=== PATIENT | female | born 1940 | race Caucasian/White ===

== ENCOUNTER 2016-10-29 11:48 | Inpatient (IN) | payer MEDICARE, OTHER ==
[2016-10-26 13:48] LABS: HEMATOCRIT 40.9 % (36.0-48.0); HEMOGLOBIN 13.8 g/dL (12.0-16.0)
[2016-10-26 14:05] LABS: BUN (BLOOD UREA NITROGEN) 17 MG/DL (6-23); CALCIUM, SERUM 8.9 MG/DL (8.5-10.4); CHLORIDE, SERUM 104 MMOL/L (96-112); CO2 (CARBON DIOXIDE) 25 MMOL/L (24-34); CREATININE 0.94 MG/DL (0.55-1.02); GFR AFRICAN AMERICAN 69 ML/MIN (>=60); GFR NON AFRICAN AMERICAN 59 ML/MIN (>=60); GLUCOSE, SERUM 102 MG/DL (60-99); POTASSIUM, SERUM 3.9 MMOL/L (3.5-5.3); SODIUM, SERUM 140 MMOL/L (135-148)
--- NOTE | ~2016-10-29 | OP ---
Record Of Operation [facility] [address] [place]. [address] NAME: GOLDEN PALOMARES : 42 STATUS : ADM IN PAT#: [id number] AGE: 76 ADM/REG DATE : 10/29/16 MR#: [id number] REPORT SERV DATE: 10/29/16 DICTATED BY: KEVEN IQBAL DATE: 10/29/16 REPORT STATUS : Draft TRANSCRIBED BY: MODL DATE: 10/29/16 DATE OF PROCEDURE: 10/29/2016 PREOPERATIVE DIAGNOSIS: C3-C7 disk disease and stenosis with intractable pain. POSTOPERATIVE DIAGNOSIS: C3-C7 disk disease and stenosis with intractable pain. PROCEDURE: Anterior cervical diskectomy and fusion, C3-4, C4-5, C5-6, C6-7; placement of Medtronic interbody spacer, C3-4, C4-5, C5-6, C6-7; anterior cervical plate from Medtronic, C3 through C7; allograft bone matrix neuromonitoring; and operative microscope. SURGEON: Keven Iqbal DO ANESTHESIA: General. ESTIMATED BLOOD LOSS: 60 mL. COMPLICATIONS: None. INDICATIONS: The patient is a 76-year-old with intractable neck and arm pain, failed conservative treatment. After discussion of risks and benefits, elected to proceed with surgery. PROCEDURE: I identified the patient in the holding area. Consent was obtained and went to the operating room. Underwent general anesthesia with endotracheal intubation. Prepped and draped in the usual sterile fashion. Operative safety pause was performed and then we proceeded. An oblique incision was made over the left side of the neck, taken down through the platysma. The longus coli elevated. Self-retaining retractors placed. Freedom pin was placed on the vertebral body and verified operative level with lateral fluoroscopic image. Distraction applied, C3-C4. Operative microscope was brought in. Knife was used to perform an annulotomy. Free disk material removed with pituitary. Anterior osteophytes were removed with the Kerrison. Posterior osteophytes removed with a estela bur. Foraminotomies were performed with Kerrison. Endplates were prepared with curettes, rasp, and a cutting bur. Trial spacers were implanted, then Medtronic PEEK interbody spacer with allograft bone matrix placed at C3-C4. This was repeated at C4-5, C5-6, and C6-7. Freedom pins were removed. Anterior cervical plate from Medtronic was placed C3 through C7. Screws were placed, final tightened. Locking mechanisms were engaged. Irrigation performed. Hemostasis achieved. Final AP and lateral images obtained. Subplatysmal drain was placed. Layered closure was performed. Sterile dressings were applied. The patient was awoken extubated and taken to the recovery room in stable condition. OPERATIVE FINDINGS: C3-7 disk disease and stenosis. No sustained neuromonitoring alerts. JCE/MODL Record Of Operation [address] [place]. [address] NAME: GOLDEN PALOMARES : 42 STATUS : ADM IN PAT#: [id number] AGE: 76 ADM/REG DATE : 10/29/16 MR#: [id number] REPORT SERV DATE: 10/29/16 DICTATED BY: KEVEN IQBAL DATE: 10/29/16 REPORT STATUS : Draft TRANSCRIBED BY: MODCboy DATE: 10/29/16 Keven Iqbal DO / [id number] CC: DO Letty Cruz
--- NOTE | ~2016-10-29 | CN ---
Consultation Report [facility] [address] [place]. [address] NAME: GOLDEN PALOMARES : 42 STATUS : ADM IN PAT#: [id number] AGE: 76 ADM/REG DATE : 10/29/16 MR#: [id number] REPORT SERV DATE: 10/31/16 DICTATED BY: LESLI GONZALEZ DATE: 10/31/16 REPORT STATUS : Draft TRANSCRIBED BY: MODL DATE: 10/31/16 MEDICAL CONSULTATION DATE OF CONSULTATION: 10/31/2016 IDENTIFYING DATA: A 76-year-old white female, whose PCP is Letty Cook and surgeon, Dr. Keven Iqbal. REASON FOR CONSULTATION: Low oxygen saturation. HISTORY OF PRESENT ILLNESS: This history of present illness is obtained by talking with the patient and three family members at the bedside, as well as talking to her nurse and reviewing [employer] and the current paper chart. The patient has had significant neck pain, which led to an elective surgical procedure with Dr. Keven Iqbal on 10/29/2016 with an anterior cervical diskectomy and fusion. Postop, she was initially in the intensive care and seen by Dr. Hoang Freeman of Pulmonary. Intraoperatively, it appears that the patient received Decadron 8 mg. According to family, over the last day, she has had more difficulty with swallowing, she gets choked and coughs. She is not taking in much orally. She has had decreased oral output. The nurse noted this morning that to get her O2 sat up to 90% or 91%, they had to transformation coach her to use the incentive spirometry and the patient was not very good at using that, so we were consulted since Pulmonary and Critical Care is no longer following her after she is out of the intensive care. According to and the patient, she did not have cough or congestion at home prior to this procedure. She has had a very sore throat postop. REVIEW OF SYSTEMS: She has had chronic soreness in her low anterior ribs for years. She has had some mild chronic shortness of breath, it is a little worse now. She has been very sleepy and according to her, just weak in general today. She has denied fever, nausea, vomiting, diarrhea, rectal bleeding, melena, dysuria, peripheral edema, tick bites, weight change, or falls. ALLERGIES: SHE CLAIMS ALLERGY TO PENICILLIN. PAST MEDICAL HISTORY: She denies any history of diabetes, asthma, COPD, heart disease, stroke, seizure, biliary tract disease, liver disease, thyroid disease, cancer, or sleep apnea. She has a history of hypertension, hyperlipidemia, ulcers, reflux, kidney infection years ago, and the states that recently she had some swelling behind the right eye and she was given some steroid drops for this. HOME MEDICATIONS: Fosamax 70 mg every Wednesday, aspirin 81 mg daily, Lipitor 40 mg daily, Consultation Report [address] [address] NAME: GOLDEN PALOMARES : 42 STATUS : ADM IN [facility]#: [id number] AGE: 76 ADM/REG DATE : 10/29/16 MR#: [id number] REPORT SERV DATE: 10/31/16 DICTATED BY: LESLI GONZALEZ DATE: 10/31/16 REPORT STATUS : Draft TRANSCRIBED BY: OMID DATE: 10/31/16 Zyrtec 10 mg daily, Flexeril 10 mg daily, Estrace 1 mg twice a day, hydrochlorothiazide 12.5 mg p.o. daily, meloxicam 15 mg daily, omeprazole 20 mg b.i.d., verapamil SR 240 mg daily. PAST SURGICAL HISTORY: She has had cervical spine surgeries, hysterectomy, rectocele repair, breast implantation. SOCIAL HISTORY: She used to smoke, but quit in the 1980s, but has a [id number] history. No significant alcohol intake history. She is . 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 She walks without assistive device. FAMILY HISTORY: Mother had breast cancer. Dad with heart disease. Siblings with bone cancer, prostate cancer, and one what sounds like he had a lymphoma. DIAGNOSTIC DATA: Chest x-ray done as a single portable film on 10/30/2016 reveals some pulmonary vascular congestion, some atelectasis in the lung base, and the hardware changes in her neck. On 10/30/2016, sodium 138, potassium 3.5, chloride 102, CO2 is 23, BUN 12, creatinine 0.86, glucose 177, calcium 7.1, magnesium 1.7, phosphorus 2.3, albumin was 2.5, alkaline phosphatase is 190. On 10/30/2016, white count was 14.2 with hemoglobin 12.6 and platelets 266,000. 10/26/2016, nasal swab was negative for MRSA and negative for Staph aureus. EKG on 10/26/2016 at 1325 hours reveals normal sinus rhythm and a normal EKG per my interpretation. PHYSICAL EXAMINATION: VITAL SIGNS: Temp is 98, pulse 78, respirations 18, blood pressure 110/58, O2 sat 91% on room air. BMI 29.3. GENERAL: A well-developed older female, who appears drowsy, but in no acute distress. She is coughing and it sounds wet, and she has difficult time clearing it. HEENT: Pupils equal, round, and reactive to light. Extraocular motions are intact. No scleral icterus noted. Ears, externally unremarkable. No inflammatory changes noted and normal hearing bilaterally. Nose, noninflamed externally. Septum midline. Nares patent. Mouth is dry. She has a weak gag. No redness on her throat at this time. NECK: She has incision on the left side that was clean, dry, and intact. No lymphadenopathy. Carotids have good pulses. LUNGS: Shallow inspiratory sighs. She has upper airway rhonchi. Normal respiratory comfort at this time. HEART: Regular rate and rhythm without murmur, gallop, click, or rub. ABDOMEN: Bowel sounds positive. Soft and nondistended. Minimally tender in the left lower quadrant with palpation only. No mass. No organomegaly. No bruits. EXTREMITIES: Warm. Good pulses. No clubbing. No cyanosis. No edema. No actively inflamed skin or joints. NEUROLOGIC: She is a bit drowsy, but easy to awaken with tactile and verbal stimulation. She is oriented. Her speech is clear. Her motor strength is 2/5 in all four extremities. No Babinski. No clonus noted. Cranial nerves 2 through 12 grossly normal. ASSESSMENT: Consultation Report [address] [place]. [address] NAME: GOLDEN PALOMARES : 42 STATUS : ADM IN [facility]#: [id number] AGE: 76 ADM/REG DATE : 10/29/16 MR#: [id number] REPORT SERV DATE: 10/31/16 DICTATED BY: LESLI GONZALEZ DATE: 10/31/16 REPORT STATUS : Draft TRANSCRIBED BY: MODL DATE: 10/31/16 1. New postoperative wet cough with some hypoxia and increased cough with oral intake. This is concerning for aspiration after a neck surgery. 2. Mild acute hypoxic respiratory insufficiency related to problem #1. 3. Ex-cigarette smoker. 4. Drowsiness, it is probably metabolic encephalopathy related to pain medications and less likely obstructive sleep apnea. It is unlikely that she has chronic hypercapnic failure as her outpatient chemistry showed a bicarbonate of 25 and her bicarbonate level yesterday was 23. 5. Steroid-induced hyperglycemia. 6. History of hypertension. 7. History of hyperlipidemia. 8. History of ulcers and reflux. 9. History of kidney infection long time ago. 10.History of some "swelling behind the right eye recently.". PLAN: 1. Follow up chest x-ray. 2. Thickened liquids. 3. Aspiration precautions that she should be sitting upright and alert before she tries to take anything by mouth. 4. We will give her some supplemental IV fluids because she has not been putting out much fluid and not taking in much fluids. 5. Hold her estrogen while she is sedentary. 6. Discontinue Phenergan. 7. Reduce the strength of her opiates. 8. Follow up chemistries and CBC and check a procalcitonin today. RSG/MODL Lesli Gonzalez M.D. / [id number] CC: Keven Iqbal, DO Cook,Letty Jaffe
--- NOTE | ~2016-10-29 | PREOPHP ---
PreOp History and Physical [address] [address] NAME: GOLDEN PALOMARES : 42 STATUS : REG [facility]#: [id number] AGE: 76 ADM/REG DATE : 10/29/16 MR#: [id number] REPORT SERV DATE: 10/29/16 DICTATED BY: KEVEN ALEXANDER DATE: 10/29/16 REPORT STATUS : Draft TRANSCRIBED BY: OMID DATE: 10/29/16 CHIEF COMPLAINT: Neck pain. HISTORY OF PRESENT ILLNESS: The patient is a 76-year-old with intractable neck pain with failed conservative treatment. After discussion of risks and benefits, elected to proceed with surgery. REVIEW OF SYSTEMS: She denies chest pain, shortness of breath, and bowel or bladder changes. ALLERGIES: PENICILLIN. HOME MEDICATIONS: Aspirin, atorvastatin, cyclobenzaprine, estradiol, hydrochlorothiazide, meloxicam, omeprazole, tramadol, verapamil, Zyrtec. FAMILY HISTORY: Noncontributory. PAST MEDICAL HISTORY: Hypertension, high cholesterol, gastric reflux, osteoporosis, osteoarthritis. PHYSICAL EXAMINATION: VITAL SIGNS: Height 5 feet 4 inches, weight 170, BMI 29.2. GENERAL: The patient is healthy appearing, in no acute distress. PSYCH: Alert and oriented x3. Normal mood and affect. Gait is within normal limits. VASCULAR: No extremity swelling. SPINE: Decreased cervical range of motion. HEART: Regular rate and rhythm. LUNGS: Clear to auscultation. ABDOMEN: Soft, nontender, nondistended with good bowel sounds. BREASTS AND RECTAL: Both deferred. NEUROLOGIC: Strength in the upper extremities remains neurologically intact. No focal deficits. IMAGING: I have reviewed the MRI scan of the cervical spine. She has C3 through C7 disk disease and stenosis. ASSESSMENT: Cervical disk disease and stenosis. Intractable pain. Failed conservative treatment. After discussion of risks and benefits, the patient elected to proceed with surgery. KELLE/OMID Keven Alexander DO PreOp History and Physical [address] [address] NAME: GOLDEN PALOMARES : 42 STATUS : REG SD PAT#: [id number] AGE: 76 ADM/REG DATE : 10/29/16 MR#: [id number] REPORT SERV DATE: 10/29/16 DICTATED BY: KEVEN ALEXANDER DATE: 10/29/16 REPORT STATUS : Draft TRANSCRIBED BY: MODL DATE: 10/29/16 / [id number] CC: Keven Alexander, DO Letty Cook
--- NOTE | ~2016-10-29 | CN ---
Consultation Report [facility] [address] [place]. [address] NAME: GOLDEN PETER : 42 STATUS : ADM IN PAT#: [id number] AGE: 76 ADM/REG DATE : 10/29/16 MR#: [id number] REPORT SERV DATE: 10/30/16 DICTATED BY: DEANGELO FREEMAN IV DATE: 10/29/16 REPORT STATUS : Draft TRANSCRIBED BY: OMID DATE: 10/29/16 CRITICAL CARE CONSULT DATE OF CONSULTATION: 10/29/2016 REASON FOR REQUEST: Postoperative management of hypertension. HISTORY OF PRESENT ILLNESS: History was obtained from the records and from the patient. Ms Peter is a 76-year-old female with a history of hypertension, elevated cholesterol, reflux disease, who is now status post C3-7 diskectomy with fusion and anterior cervical cage and segmental instrumentation. The patient has had problems with progressive neck pain. The patient decided to proceed with surgery with the procedure as noted above. Postoperatively, the patient has adequate pain control and in no distress. She denied chronic cough, sputum production, fevers, chills, sweats, hemoptysis prior to presentation. She does have bilateral upper abdominal discomfort that is positional that has been occurring intermittently for well over a month. She denies retrosternal or pleuritic chest pain. The discomfort is worse with certain movements and is under both lower ribs. She denies change in bowel habits, melena, hematochezia, nausea or vomiting. The patient reportedly will snore. She is unaware of apneic episodes. She feels that sleep is generally restorative and denies significant sedentary hypersomnolence. PULMONARY HISTORY: Remarkable for no history of childhood asthma, known adult obstructive lung disease or previous pneumonia. She has a 35 pack-year smoking history, having quit at the age of 51. She worked in [employer] with significant dust and lint exposure. She is up to date on the flu shot and seasonal influenza vaccine, however, has not received the pneumococcal vaccinations. PAST MEDICAL HISTORY: Remarkable for: 1. Hypertension. 2. Elevated cholesterol. 3. Reflux disease. 4. Cervical spinal stenosis. SURGERIES: The patient has had: 1. Hysterectomy. 2. Rectocele repair. 3. Breast augmentation. 4. Current surgical procedure as noted. ALLERGIES: PENICILLIN, WHICH CAUSES A RASH. CURRENT MEDICATIONS: The patient is on Calan SR 240 mg daily, Claritin 10 mg daily, Colace 100 mg twice a day, Estrace 1 mg twice a day, Flexeril 10 mg daily, hydrochlorothiazide 12.5 Consultation Report [facility] [address] [place]. [address] NAME: GOLDEN PETER : 42 STATUS : ADM IN PAT#: [id number] AGE: 76 ADM/REG DATE : 10/29/16 MR#: [id number] REPORT SERV DATE: 10/30/16 DICTATED BY: DEANGELO FREEMAN IV DATE: 10/29/16 REPORT STATUS : Draft TRANSCRIBED BY: MODL DATE: 10/29/16 mg daily, Lipitor 40 mg daily, Protonix 40 mg twice a day. SOCIAL HISTORY: Remarkable for the previous tobacco use as above. She has rare social alcohol use. There is no illicit drug use. She is and has three children. FAMILY HISTORY: Remarkable for mother with brain cancer, father with stroke and hypertension. REVIEW OF SYSTEMS: 14-systems reviewed and pertinent positives are as noted above. PHYSICAL EXAMINATION: GENERAL: This is an obese, pleasant, elderly female, in no distress. VITAL SIGNS: Temperature is 98.2, blood pressure 144/75, pulse is 78, respiratory rate is 16 with 92% saturation on 2 L. HEENT: Normocephalic, atraumatic. Extraocular movements are intact. Pupils react to light. Sclerae and conjunctivae normal. She has a nasal cannula in place. She has a Mallampati 3 to 4 airway with narrowing of the posterior pharyngeal space. She has upper and lower dentures. NECK: Cannot be examined because of the soft cervical spine. She has a drain emanating from her left cervical region. CHEST: Lungs are clear to auscultation and percussion with no wheezes, rhonchi, or crackles noted. CARDIOVASCULAR: Jugular venous pulsations and carotids could not be examined. She has a regular S1, S2 with no clear murmur, S3, S4. Peripheral pulses are diminished. ABDOMEN: Soft and nontender. There are hypoactive bowel sounds. There is no palpable hepatosplenomegaly or mass. Surgical scars noted. EXTREMITIES: Demonstrate no cyanosis, clubbing, edema, or palpable cords. Pneumatic compression stockings are in place. NEUROLOGIC: Strength is 5/5 and sensation is intact to light touch. LABORATORY DATA: Outpatient labs included chemistry; sodium 140, potassium 3.9, chloride 104, bicarbonate 15, BUN 17, creatinine 0.94, glucose of 102. Calcium is 8.9. Hemoglobin and hematocrit were 13.8 and 40.9. ASSESSMENT AND PLAN: 1. Respiratory. The patient has significant smoking history. She will have albuterol as needed for wheezing or shortness of breath. Oxygen will be titrated to maintain saturation in the 90% to 94% range. X-ray will be obtained tomorrow. Incentive spirometry 10 breaths every hour awake. The patient has some symptoms consistent with obstructive sleep apnea and may warrant an outpatient sleep evaluation. 2. Cardiovascular. We will add hydralazine 10 to 20 mg q.6 hours as needed for elevated blood pressures. EKG will be obtained in the morning. 3. Renal. We will check labs in the morning with electrolyte replacement protocol. 4. Gastrointestinal. Liver panel will be obtained in the morning. Head of bed at 30 to Consultation Report [address] [place]. [address] NAME: GOLDEN PETER : 42 STATUS : ADM IN [facility]#: [id number] AGE: 76 ADM/REG DATE : 10/29/16 MR#: [id number] REPORT SERV DATE: 10/30/16 DICTATED BY: DEANGELO FREEMAN IV DATE: 10/29/16 REPORT STATUS : Draft TRANSCRIBED BY: OMID DATE: 10/29/16 45 degrees. We will continue the b.i.d. Protonix. 5. Infectious disease. Prevnar 13 at the time of discharge. 6. Hematologic. Pneumatic compression stockings. CBC in the morning. Thank you for consulting us. We will follow the patient with you. JOSTIN/OMID Deangelo Freeman IV, M.D. / [id number] CC: Keven Iqbal, HERMELINDA BOGGS
--- NOTE | ~2016-10-29 | DS ---
Discharge Summary [facility] [address] [place]. [address] NAME: GOLDEN PALOMARES : 42 STATUS : DIS IN PAT#: [id number] AGE: 76 ADM/REG DATE : 10/29/16 MR#: [id number] REPORT SERV DATE: 11/26/16 DICTATED BY: KEVEN IQBAL DATE: 11/25/16 REPORT STATUS : Draft TRANSCRIBED BY: OMID DATE: 11/25/16 Data Collection from hospitalization DISCHARGE DIAGNOSES: 1. 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 2. Hypertension. 3. Hypercholesterolemia. 4. Gastric reflux. 5. Osteoporosis. 6. Osteoarthritis. CONSULTATIONS: 1. Hoang Freeman M.D. 2. Reji Gonzalez M.D. 3. Deng Parekh M.D. PROCEDURES: 1. Anterior cervical diskectomy and fusion C3-C4, C4-C5, C5-C6, C6-C7; placement of Medtronic interbody spacer C3-C4, C4-C5, C5-C6, C6-C7; anterior cervical plate from Medtronic, C3 through C7; allograft bone matrix; neuromonitoring; and operative microscope, 10/29/2016. 2. Upper GI endoscopy, 11/09/2016. 3. Modified barium swallow study, 11/04/2016. 4. Modified barium swallow study, 11/06/2016. PATHOLOGY: Bone and soft tissue, cervical spine excision - cartilage and bone, calcium pyrophosphate crystal deposition. DISCHARGE MEDICATIONS: Colace 100 mg twice a day, Reglan 10 mg IV every 8 hours, milk of magnesia 30 mL every eight hours as needed, Lopressor 25 mg twice a day, Protonix 40 mg IV daily, MiraLAX one packet daily, DuoNeb 3 mL via inhaler every four hours while awake as needed, Lortab liquid every four hours as needed, aspirin 81 mg daily, and Lipitor 40 mg at bedtime. CONDITION AT DISCHARGE: Stable. DISPOSITION: The patient was discharged to [facility] on tube feedings with activities as instructed. HOSPITAL COURSE: This is a 76-year-old female who had intractable neck pain with failed conservative treatment. She has C3-C7 disk disease and stenosis with intractable pain. Treatment options were discussed and it was elected to proceed with surgical intervention. She was admitted to the hospital at this time for further evaluation and treatment. Upon admission, she was taken to the operating room where she underwent the above-mentioned procedure. She tolerated this well and there were no complications. Postoperatively, she was seen by Dr. Hoang Freeman regarding postoperative management of hypertension. She has had bilateral upper abdominal discomfort that was positional that had been occurring Discharge Summary [address] [place]. [address] NAME: GOLDEN PALOMARES : 41 STATUS : DIS IN PAT#: [id number] AGE: 76 ADM/REG DATE : 10/29/16 MR#: [id number] REPORT SERV DATE: 11/26/16 DICTATED BY: KEVEN IQBAL DATE: 11/25/16 REPORT STATUS : Draft TRANSCRIBED BY: OMID DATE: 11/25/16 intermittently for well over a month. She denied any retrosternal or pleuritic chest pain. The discomfort was worse with certain movements and was under both lower ribs. She reportedly does snore. She is unaware of apneic episodes. She does have a significant smoking history. She would receive albuterol as needed for wheezing or shortness of breath. Oxygen would be titrated to maintain saturations in the 90%-94% range. She was to use incentive spirometry every hour while awake. The patient has some symptoms consistent with obstructive sleep apnea, which may warrant an outpatient sleep evaluation. IV hydralazine was going to be added. EKG was going to be obtained, a liver panel would be obtained the following morning. Head of her bed would be the elevated at 30 to 45 degrees. Protonix was continued. Prevnar 13 would be given at the time of discharge. Pneumatic compression stockings were placed. Following day, chest x-ray showed slight atelectasis. Electrolyte replacement protocol was in place. On 10/31/2016, the patient was seen by Dr. Reji Gonzalez regarding low oxygen saturation. According to her family, over the past day, she has had more difficulty swallowing. She gets choked and cough. She was not taking in much orally, she had decreased oral output. She was not very good at using her incentive spirometer. She complained of having a very sore throat. She had a new postoperative wet cough with some hypoxia and increased cough with oral intake, this was concerning for aspiration after neck surgery. She does have mild acute hypoxic respiratory insufficiency. She is an ex-cigarette smoker. Followup chest x-ray would be performed, thickened liquids would be provided. Aspiration precautions were in place. She was going to be given some supplemental IV fluids. Estrogen would be held while she was sedentary. Phenergan was discontinued. We would reduce the strength of her opiates. On 11/01/2016, she had been hypoxic during the night. Chest x-ray showed bibasilar infiltrate/atelectasis, left greater than right. There were probable bibasilar pleural fluids. Potassium supplementation was given. IV clindamycin was started for aspiration pneumonia. Oral medications were stopped, next day she slept well. Her voice was hoarse. Her sore throat was mild. The left neck was mildly tender. Guzmán catheter was removed, evaluated by Physical Therapy. A swallow study was ordered. She was reevaluated by Physical Therapy. Speech-language Pathology performed a bedside swallow study. Aspiration precautions were in place. On the , her pain was controlled, she was still hoarse. She was on Vapotherm, O2 was being weaned. On 11/04/2016, a modified barium swallow study was performed. Aspiration precautions remained in place. She pulled her Dobhoff tube out. She had vzpj-xj-etzokaxq edema of the neck. IV Vasotec was going to be given. She still has some swallowing difficulties, but began to tolerate liquids and Ensure well. She was still on O2, but now only on 5 L. Levaquin was stopped. Clindamycin would be discontinued after 15 doses for aspiration pneumonia. On the , Dobhoff tube was placed. Modified barium swallow study was performed. Swallow function was worse than the previous study. Aspiration precautions remained in place. The pain in her neck had worsened. She had developed more swelling. She remained strictly n.p.o. at this time. Tube feedings were going to be provided, we were going to rest the esophagus. Ice packs were going to be used. Vasotec was changed to a beta-subhash. A dose of Toradol was given. Colace, MiraLAX, and Dulcolax suppository was given for constipation. IV Protonix was being given as well. On the , she was seen by Dr. Deng Parekh. The patient had undergone cervical surgery and had problems with dysphagia and aspiration on swallowing study. She denies any history of swallow difficulty prior to surgery. She had had no gastric surgery in the past, it was felt that she would need to undergo upper GI endoscopy with PEG tube placement. Discharge Summary [place] [id number] [place] [address] NAME: GOLDEN PALOMARES : 42 STATUS : DIS IN PAT#: [id number] AGE: 76 ADM/REG DATE : 10/29/16 MR#: [id number] REPORT SERV DATE: 11/26/16 DICTATED BY: KEVEN IQBAL DATE: 11/25/16 REPORT STATUS : Draft TRANSCRIBED BY: OMID DATE: 11/25/16 On 11/09/2016, she was taken to the endoscopic suite where she underwent the above-mentioned procedure of upper GI endoscopy and PEG tube placement by Dr. Saji Smith. She tolerated this well. There were no complications. On 11/10/2016, she still felt weak and hoarse. She had neck pain. Her abdomen was sore. Her paroxysmal atrial tachycardia spontaneously resolved, it was nonrecurrent. She was on low-dose Lopressor. She was not requiring blood pressure medication here, tube feedings were going to began. There was no erythema bleeding or drainage around the PEG tube site. The next day, the patient had some projectile vomiting with tube feedings. They were held and then restarted overnight without recurrent vomiting. There were no elevated residuals. She did cough up some phlegm, her pain was controlled. Her neck was soft. Discharge planning was performed on 11/12/2016. She had no vomiting overnight on tube feedings. Attempts to advance had been limited by vomiting. She said she had no nausea or pain at this time. She did have a bowel movement. White count was 11.5. Her voice was hoarse and she was only able to whisper. She is now on Reglan. Aspiration pneumonia had resolved. Low-dose Lopressor continued. Discharge instructions were given. Due to her improved and stable condition, she was discharged to [facility] with the above-stated instructions. Information collected by: Beth Solares I submit the above information as my discharge summary. REJI/OMID Keven Iqbal DO / [id number] CC: DO HENNY Cruz KARAH FREEMAN [facility] Deng Parekh M.D.
--- NOTE | ~2016-10-29 | CN ---
Consultation Report [facility] [place]. [address] NAME: GOLDEN PALMOARES : 42 STATUS : ADM IN PAT#: [id number] AGE: 76 ADM/REG DATE : 10/29/16 MR#: [id number] REPORT SERV DATE: 11/07/16 DICTATED BY: DENG PECK. DATE: 11/07/16 REPORT STATUS : Draft TRANSCRIBED BY: MODL DATE: 11/07/16 GI CONSULT DATE OF CONSULTATION: 11/07/2016 HISTORY OF PRESENT ILLNESS: The patient is a 76-year-old white female, whom I am consulted for gastrostomy tube placement. The patient underwent a cervical surgery and has had problems with dysphagia and aspiration on swallowing study since. She denies any history of swallowing difficulty prior to surgery. She does have a history of gastritis. The patient has had no gastric surgery in the past. PAST MEDICAL HISTORY: 1. Hypertension. 2. Gastroesophageal reflux disease. 3. Osteoporosis and osteoarthritis. MEDICATIONS: Reviewed. ALLERGIES: PENICILLIN. SOCIAL HISTORY: Not obtained. FAMILY HISTORY: Not obtained. PHYSICAL EXAMINATION: GENERAL: The patient is a white female, in no acute distress. LUNGS: Clear. CARDIOVASCULAR: Regular rate and rhythm. ABDOMEN: Obese and soft. No masses. No tenderness to palpation. LABORATORY DATA: Patient's CBC shows white count 12,100, hemoglobin 11.8, hematocrit 34.9, and platelet count 290,000. BUN and creatinine are normal. ASSESSMENT: The patient has difficulty swallowing status post cervical surgery with aspiration, agree with gastrostomy tube feedings, although certainly this does not prevent aspiration of her oral secretions. I have discussed the procedures, risks, and alternatives with the and patient, and they are agreeable to proceed. RECOMMENDATION: Orders were written. We will plan for a PEG placement on 11/09/2016. LS/MODL Consultation Report [place] [id number] [facility] [place]. [address] NAME: GOLDEN PALOMARES : 41 STATUS : ADM IN [facility]#: [id number] AGE: 76 ADM/REG DATE : 10/29/16 MR#: [id number] REPORT SERV DATE: 11/07/16 DICTATED BY: DENG PECK DATE: 11/07/16 REPORT STATUS : Draft TRANSCRIBED BY: MODL DATE: 11/07/16 Deng Peck M.D. / [id number] CC: Keven Iqbal, HERMELINDA BOGGS
--- NOTE | ~2016-10-29 | EGD ---
EGD REPORT [facility] [address] [address] NAME: SYLVIA PETER : 42 STATUS : ADM IN PAT#: [id number] AGE: 76 ADM/REG DATE : 10/29/16 MR#: [id number] REPORT SERV DATE: 11/09/16 DICTATED BY: SAJI QUINTANILLA DATE: 11/09/16 REPORT STATUS : Draft [facility]ANSCRIBED BY: [facility] DATE: 11/09/16 Endoscopy Center Patient Name: Sylvia Peter Date of : 1940 Attending MD: SAJI QUINTANILLA MD Procedure Date No Time: 11/09/2016 Procedure: Upper GI endoscopy Indications: Place PEG because patient is unable to eat, Place PEG due to dysphagia, Place PEG due to impaired swallowing, Place PEG due to aspiration risk Medicines: Monitored Anesthesia Care Complications: No immediate complications. Estimated blood loss: Minimal. Procedure: Pre-Anesthesia Assessment: - ASA Grade Assessment: III - A patient with severe systemic disease. After obtaining informed consent, the endoscope was passed under direct vision. Throughout the procedure, the patient's blood pressure, pulse, and oxygen saturations were monitored continuously. The GIF [id number] was introduced through the mouth, and advanced to the second part of duodenum. The upper GI endoscopy was accomplished without difficulty. The patient tolerated the procedure well. Findings: No gross lesions were noted in the entire esophagus. No gross lesions were noted in the entire examined stomach. The patient was placed in the supine position for PEG placement. The stomach was insufflated to appose gastric and abdominal sher. A site was located in the body of the stomach with excellent transillumination and manual external pressure for placement. The abdominal wall was marked and prepped in a sterile manner. The area was anesthetized with 5 mL of 1% lidocaine. The trocar needle was introduced through the abdominal wall and into the stomach under direct endoscopic view. A snare was introduced through the endoscope and opened in the gastric lumen. The guide wire was passed through the trocar and into the open snare. The snare was closed around the guide wire. The endoscope and snare were removed, pulling the wire out through the mouth. A skin incision was made at the site of needle insertion. The externally removable 20 Fr EndoVive Safety gastrostomy tube was lubricated. The G-tube was passed over the guide wire through the mouth, and into the stomach. The trocar needle was removed, and the gastrostomy tube was pulled out from the stomach through the skin. The guide wire was removed, and the external bumper attached to the gastrostomy tube. The feeding tube was then cut EGD REPORT [place] [id number] [facility] [place]. [address] NAME: JELANISYLVIA JOEL Barney : 42 STATUS : ADM IN [facility]#: [id number] AGE: 76 ADM/REG DATE : 10/29/16 MR#: [id number] REPORT SERV DATE: 11/09/16 DICTATED BY: SAJI QUINTANILLA DATE: 11/09/16 REPORT STATUS : Draft TRANSCRIBED BY: [employer] DATE: 11/09/16 to an appropriate length. The final position of the gastrostomy tube was confirmed by skin marking noted to be 3.5 cm at the external bumper. The final tension and compression of the abdominal wall by the PEG tube and external bumper were checked and revealed that the bumper was loose and lightly touching the skin. The feeding tube was capped, and the tube site was cleaned and dressed. Estimated blood loss was minimal. No gross lesions were noted in the entire examined duodenum. Impression: - Unremarkable EGD - An externally removable PEG placement was successfully completed. Recommendation: - Please follow the post-PEG recommendations including: change dressing once per day, check site for bleeding q 4 hrs, clean site with soap and water daily and dry thoroughly, remove dressing after 2 weeks, NPO x4 hrs then water today, may use PEG today for meds and water and may use PEG tomorrow for feedings. Procedure Code(s): --- Professional --- 35987, Esophagogastroduodenoscopy, flexible, transoral; with directed placement of percutaneous gastrostomy tube Diagnosis Code(s): --- Professional --- R63.3, Feeding difficulties Z43.1, Encounter for attention to gastrostomy R13.10, Dysphagia, unspecified CPT copyright 2013 [employer]. All rights reserved. The codes documented in this report are preliminary and upon corporate manager review may be revised to meet current compliance requirements. Saji Quintanilla MD SAJI QUINTANILLA MD 11/09/2016 8:03 AM This report has been signed electronically. Number of Addenda: 0 Note Initiated On: 11/09/2016 7:13 AM Scope Withdrawal Time 0 hours 0 minutes 0 seconds [address] [place], [place] [id number]
[~2016-10-29 11:48] MED LIST: ASAB PO; ESTRACE1 MG PO; FLEX PO; FOSAMAX70 MG PO; HYDROCHLOROT12.5 MG PO; ISOPTIN SR240 MG PO; LIPITOR40 PO; MOBIC15 MG PO; PRILO PO; ZYRTEC ALLGY10 MG PO
[2016-10-30 05:47] LABS: A/G RATIO 0.6 (0.7-1.9); ALBUMIN 2.5 G/DL (3.5-5.0); ALKALINE PHOSPHATASE 190 U/L (45-117); CHLORIDE, SERUM 102 MMOL/L (96-112); CO2 (CARBON DIOXIDE) 23 MMOL/L (24-34); CREATININE 0.86 MG/DL (0.55-1.02); GFR AFRICAN AMERICAN 77 ML/MIN (>=60); GFR NON AFRICAN AMERICAN 66 ML/MIN (>=60); GLOBULIN 3.9 G/DL (2.5-4.1); PHOSPHORUS, SERUM 2.3 MG/DL (2.5-4.5); POTASSIUM, SERUM 3.5 MMOL/L (3.5-5.3); SGOT(AST) 15 U/L (5-40); SGPT(ALT) 15 U/L (5-65); SODIUM, SERUM 138 MMOL/L (135-148); TOTAL BILIRUBIN 0.3 MG/DL (0-1.2); TOTAL PROTEIN 6.4 G/DL (6.0-8.5)
[2016-10-30 05:50] LABS: BUN (BLOOD UREA NITROGEN) 12 MG/DL (6-23); CALCIUM, SERUM 7.6 MG/DL (8.5-10.4); GLUCOSE, SERUM 177 MG/DL (60-99)
[2016-10-30 05:58] LABS: BASOPHILS 0 %; EOSINOPHILS 0 %; HEMATOCRIT 37.4 % (36.0-48.0); HEMOGLOBIN 12.6 g/dL (12.0-16.0); IMMATURE GRANULOCYTES 0.4 %; IMMATURE GRANULOCYTES ABSOLUTE 0.05 10/3/uL (0.0-0.11); LYMPHOCYTES 6.6 %; LYMPHOCYTES ABSOLUTE 0.94 10/3/uL (0.67-4.30); MEAN CORPUS HGB CONC 33.7 g/dL (32.0-36.0); MEAN CORPUSCULAR HEMOGLOB 28.1 pg (26.0-34.0); MEAN CORPUSCULAR VOLUME 83.3 fL (80-100); MEAN PLATELET VOLUME 11.5 fL (9.2-13.0); MONOCYTES 5.9 %; MONOCYTES ABSOLUTE 0.83 10/3/uL (0.21-1.20); NEUTROPHILS 87.1 %; NEUTROPHILS ABSOLUTE 12.35 10/3/uL (2.02-8.40); PLATELET COUNT 266 10/3/uL (150-400); RBC DISTRIBUTION WIDTH 14.3 % (12.0-16.0); RED CELL COUNT 4.49 10/6/uL (4.0-5.6); WHITE BLOOD CELLS 14.2 10/3/uL (4.5-10.5)
[2016-10-30 06:10] LABS: MANUAL DIFF NO %
[2016-10-31 16:41] LABS: BASOPHILS 0.2 %; BASOPHILS ABSOLUTE 0.02 10/3/uL (0.0-0.16); EOSINOPHILS 0 %; HEMATOCRIT 39.8 % (36.0-48.0); HEMOGLOBIN 13.8 g/dL (12.0-16.0); IMMATURE GRANULOCYTES 0.3 %; IMMATURE GRANULOCYTES ABSOLUTE 0.03 10/3/uL (0.0-0.11); LYMPHOCYTES 12.1 %; LYMPHOCYTES ABSOLUTE 1.28 10/3/uL (0.67-4.30); MEAN CORPUS HGB CONC 34.7 g/dL (32.0-36.0); MEAN CORPUSCULAR HEMOGLOB 28.9 pg (26.0-34.0); MEAN CORPUSCULAR VOLUME 83.4 fL (80-100); MEAN PLATELET VOLUME 11.1 fL (9.2-13.0); MONOCYTES 5.7 %; NEUTROPHILS 81.7 %; NEUTROPHILS ABSOLUTE 8.62 10/3/uL (2.02-8.40); PLATELET COUNT 233 10/3/uL (150-400); RBC DISTRIBUTION WIDTH 14.2 % (12.0-16.0); RED CELL COUNT 4.77 10/6/uL (4.0-5.6); WHITE BLOOD CELLS 10.6 10/3/uL (4.5-10.5)
[2016-10-31 16:50] LABS: MANUAL DIFF NO %
[2016-10-31 16:54] LABS: BUN (BLOOD UREA NITROGEN) 17 MG/DL (6-23); CALCIUM, SERUM 7.8 MG/DL (8.5-10.4); CHLORIDE, SERUM 96 MMOL/L (96-112); CO2 (CARBON DIOXIDE) 27 MMOL/L (24-34); CREATININE 0.94 MG/DL (0.55-1.02); GFR AFRICAN AMERICAN 69 ML/MIN (>=60); GFR NON AFRICAN AMERICAN 59 ML/MIN (>=60); GLUCOSE, SERUM 119 MG/DL (60-99); POTASSIUM, SERUM 3.5 MMOL/L (3.5-5.3); SODIUM, SERUM 132 MMOL/L (135-148)
[2016-10-31 18:13] LABS: PROCALCITONIN 1.55 ng/mL (<0.5)
[2016-10-31 21:07] LABS: BASOPHILS 0.1 %; BASOPHILS ABSOLUTE 0.01 10/3/uL (0.0-0.16); EOSINOPHILS 0 %; HEMATOCRIT 39.1 % (36.0-48.0); HEMOGLOBIN 13.7 g/dL (12.0-16.0); IMMATURE GRANULOCYTES 0.3 %; IMMATURE GRANULOCYTES ABSOLUTE 0.03 10/3/uL (0.0-0.11); LYMPHOCYTES 8.1 %; LYMPHOCYTES ABSOLUTE 0.95 10/3/uL (0.67-4.30); MANUAL DIFF NO %; MEAN CORPUSCULAR VOLUME 82.8 fL (80-100); MEAN PLATELET VOLUME 11.5 fL (9.2-13.0); MONOCYTES 6.5 %; MONOCYTES ABSOLUTE 0.76 10/3/uL (0.21-1.20); NEUTROPHILS ABSOLUTE 9.92 10/3/uL (2.02-8.40); PLATELET COUNT 226 10/3/uL (150-400); RBC DISTRIBUTION WIDTH 14.1 % (12.0-16.0); RED CELL COUNT 4.72 10/6/uL (4.0-5.6); WHITE BLOOD CELLS 11.7 10/3/uL (4.5-10.5)
[2016-10-31 21:13] LABS: A/G RATIO 0.6 (0.7-1.9); ALBUMIN 2.3 G/DL (3.5-5.0); BUN (BLOOD UREA NITROGEN) 18 MG/DL (6-23); CALCIUM, SERUM 8.1 MG/DL (8.5-10.4); CHLORIDE, SERUM 95 MMOL/L (96-112); CO2 (CARBON DIOXIDE) 26 MMOL/L (24-34); CREATININE 0.91 MG/DL (0.55-1.02); GFR AFRICAN AMERICAN 72 ML/MIN (>=60); GFR NON AFRICAN AMERICAN 62 ML/MIN (>=60); GLOBULIN 4.1 G/DL (2.5-4.1); GLUCOSE, SERUM 117 MG/DL (60-99); SGPT(ALT) 27 U/L (5-65); SODIUM, SERUM 132 MMOL/L (135-148); TOTAL PROTEIN 6.4 G/DL (6.0-8.5)
[2016-10-31 21:14] LABS: ALKALINE PHOSPHATASE 142 U/L (45-117); POTASSIUM, SERUM 3.8 MMOL/L (3.5-5.3); TOTAL BILIRUBIN 0.8 MG/DL (0-1.2)
[2016-10-31 21:15] LABS: SGOT(AST) 86 U/L (5-40)
[2016-10-31 21:52] LABS: BE (BASE EXCESS) 5.6 MEQ/L (0 +/- 2.5); CARBOXYHEMOGLOBIN 0.7 % (0-3); HCO3 (ACTUAL BICARBONATE) 28.4 MEQ/L (23-27); HEMOBLOGIN CONTENT 13.1 G/DL (12-16); INSTRUMENT SERIAL # 8083; METHEMOGLOBIN 0.2 % (0-3); O2 CONTENT 17.8 VOL% (18-24); PCO2 (CO2 TENSION) 35 MMHG (35-45); PO2 (O2 TENSION) 86 MMHG (79-93); SAMPLE Arterial; pH 7.52 (7.37-7.43)
[2016-11-01 05:37] LABS: BASOPHILS 0.1 %; BASOPHILS ABSOLUTE 0.01 10/3/uL (0.0-0.16); EOSINOPHILS 0 %; HEMOGLOBIN 12.2 g/dL (12.0-16.0); IMMATURE GRANULOCYTES 0.3 %; IMMATURE GRANULOCYTES ABSOLUTE 0.03 10/3/uL (0.0-0.11); LYMPHOCYTES 12.9 %; MEAN CORPUS HGB CONC 34.8 g/dL (32.0-36.0); MEAN CORPUSCULAR HEMOGLOB 28.5 pg (26.0-34.0); MEAN PLATELET VOLUME 11.6 fL (9.2-13.0); MONOCYTES 7.9 %; MONOCYTES ABSOLUTE 0.86 10/3/uL (0.21-1.20); NEUTROPHILS 78.8 %; NEUTROPHILS ABSOLUTE 8.56 10/3/uL (2.02-8.40); PLATELET COUNT 210 10/3/uL (150-400); RBC DISTRIBUTION WIDTH 14.5 % (12.0-16.0); RED CELL COUNT 4.28 10/6/uL (4.0-5.6); WHITE BLOOD CELLS 10.9 10/3/uL (4.5-10.5)
[2016-11-01 05:39] LABS: HEMATOCRIT 35.1 % (36.0-48.0); MANUAL DIFF NO %
[2016-11-01 05:47] LABS: BUN (BLOOD UREA NITROGEN) 17 MG/DL (6-23); CALCIUM, SERUM 7.9 MG/DL (8.5-10.4); CHLORIDE, SERUM 97 MMOL/L (96-112); CO2 (CARBON DIOXIDE) 28 MMOL/L (24-34); CREATININE 0.79 MG/DL (0.55-1.02); GFR AFRICAN AMERICAN 85 ML/MIN (>=60); GFR NON AFRICAN AMERICAN 73 ML/MIN (>=60); GLUCOSE, SERUM 106 MG/DL (60-99); SODIUM, SERUM 135 MMOL/L (135-148)
[2016-11-01 20:04] LABS: POTASSIUM, SERUM 3.6 MMOL/L (3.5-5.3)
[2016-11-02 04:13] LABS: BASOPHILS 0.2 %; BASOPHILS ABSOLUTE 0.02 10/3/uL (0.0-0.16); EOSINOPHILS 0.6 %; EOSINOPHILS ABSOLUTE 0.06 10/3/uL (0.0-0.53); HEMATOCRIT 32.3 % (36.0-48.0); IMMATURE GRANULOCYTES 0.4 %; IMMATURE GRANULOCYTES ABSOLUTE 0.04 10/3/uL (0.0-0.11); LYMPHOCYTES 20.9 %; LYMPHOCYTES ABSOLUTE 2.24 10/3/uL (0.67-4.30); MEAN CORPUS HGB CONC 34.1 g/dL (32.0-36.0); MEAN CORPUSCULAR HEMOGLOB 28.4 pg (26.0-34.0); MEAN CORPUSCULAR VOLUME 83.5 fL (80-100); MEAN PLATELET VOLUME 11.2 fL (9.2-13.0); MONOCYTES 9.8 %; MONOCYTES ABSOLUTE 1.05 10/3/uL (0.21-1.20); NEUTROPHILS 68.1 %; PLATELET COUNT 229 10/3/uL (150-400); RBC DISTRIBUTION WIDTH 14.6 % (12.0-16.0); RED CELL COUNT 3.87 10/6/uL (4.0-5.6); WHITE BLOOD CELLS 10.7 10/3/uL (4.5-10.5)
[2016-11-02 04:16] LABS: MANUAL DIFF NO %
[2016-11-02 04:39] LABS: ALLENS TEST Pos; CARBOXYHEMOGLOBIN 0.5 % (0-3); HCO3 (ACTUAL BICARBONATE) 23.8 MEQ/L (23-27); HEMOBLOGIN CONTENT 11.6 G/DL (12-16); INSTRUMENT SERIAL # 8083; METHEMOGLOBIN 0.2 % (0-3); OPERATOR ID 33214; PCO2 (CO2 TENSION) 32 MMHG (35-45); PO2 (O2 TENSION) 101 MMHG (79-93); SAMPLE Arterial; pH 7.49 (7.37-7.43)
[2016-11-02 04:51] LABS: BUN (BLOOD UREA NITROGEN) 18 MG/DL (6-23); CALCIUM, SERUM 7.9 MG/DL (8.5-10.4); CHLORIDE, SERUM 104 MMOL/L (96-112); CO2 (CARBON DIOXIDE) 26 MMOL/L (24-34); CREATININE 0.74 MG/DL (0.55-1.02); GFR AFRICAN AMERICAN 92 ML/MIN (>=60); GFR NON AFRICAN AMERICAN 79 ML/MIN (>=60); POTASSIUM, SERUM 3.9 MMOL/L (3.5-5.3); SODIUM, SERUM 137 MMOL/L (135-148)
[2016-11-02 04:53] LABS: GLUCOSE, SERUM 81 MG/DL (60-99)
[2016-11-02 06:07] LABS: PROCALCITONIN 2.55 ng/mL (<0.5)
[2016-11-03 04:40] LABS: BASOPHILS 0.1 %; BASOPHILS ABSOLUTE 0.01 10/3/uL (0.0-0.16); EOSINOPHILS 0 %; HEMATOCRIT 35.2 % (36.0-48.0); HEMOGLOBIN 12.1 g/dL (12.0-16.0); IMMATURE GRANULOCYTES 0.7 %; IMMATURE GRANULOCYTES ABSOLUTE 0.06 10/3/uL (0.0-0.11); LYMPHOCYTES 9.4 %; MANUAL DIFF NO %; MEAN CORPUS HGB CONC 34.4 g/dL (32.0-36.0); MEAN CORPUSCULAR HEMOGLOB 28.7 pg (26.0-34.0); MEAN CORPUSCULAR VOLUME 83.4 fL (80-100); MEAN PLATELET VOLUME 10.9 fL (9.2-13.0); MONOCYTES 3.2 %; MONOCYTES ABSOLUTE 0.27 10/3/uL (0.21-1.20); NEUTROPHILS 86.6 %; NEUTROPHILS ABSOLUTE 7.37 10/3/uL (2.02-8.40); PLATELET COUNT 295 10/3/uL (150-400); RBC DISTRIBUTION WIDTH 14.6 % (12.0-16.0); RED CELL COUNT 4.22 10/6/uL (4.0-5.6); WHITE BLOOD CELLS 8.5 10/3/uL (4.5-10.5)
[2016-11-03 04:43] LABS: BUN (BLOOD UREA NITROGEN) 16 MG/DL (6-23); CALCIUM, SERUM 8.3 MG/DL (8.5-10.4); CHLORIDE, SERUM 108 MMOL/L (96-112); CREATININE 0.63 MG/DL (0.55-1.02); GFR AFRICAN AMERICAN 102 ML/MIN (>=60); GFR NON AFRICAN AMERICAN 88 ML/MIN (>=60); POTASSIUM, SERUM 3.9 MMOL/L (3.5-5.3); SODIUM, SERUM 140 MMOL/L (135-148)
[2016-11-03 04:44] LABS: CO2 (CARBON DIOXIDE) 21 MMOL/L (24-34); GLUCOSE, SERUM 119 MG/DL (60-99)
[2016-11-03 05:33] LABS: PROCALCITONIN 1.03 ng/mL (<0.5)
[2016-11-05 06:24] LABS: HEMATOCRIT 34.7 % (36.0-48.0); HEMOGLOBIN 11.6 g/dL (12.0-16.0); MEAN CORPUS HGB CONC 33.4 g/dL (32.0-36.0); MEAN CORPUSCULAR HEMOGLOB 28.4 pg (26.0-34.0); PLATELET COUNT 278 10/3/uL (150-400); RBC DISTRIBUTION WIDTH 15.1 % (12.0-16.0); RED CELL COUNT 4.08 10/6/uL (4.0-5.6)
[2016-11-05 06:27] LABS: MANUAL DIFF YES %; WHITE BLOOD CELLS 13.5 10/3/uL (4.5-10.5)
[2016-11-05 06:36] LABS: BUN (BLOOD UREA NITROGEN) 13 MG/DL (6-23); CALCIUM, SERUM 8.1 MG/DL (8.5-10.4); CHLORIDE, SERUM 108 MMOL/L (96-112); CO2 (CARBON DIOXIDE) 22 MMOL/L (24-34); CREATININE 0.68 MG/DL (0.55-1.02); GFR AFRICAN AMERICAN 99 ML/MIN (>=60); GFR NON AFRICAN AMERICAN 86 ML/MIN (>=60); SODIUM, SERUM 141 MMOL/L (135-148)
[2016-11-05 06:38] LABS: GLUCOSE, SERUM 86 MG/DL (60-99)
[2016-11-05 06:52] LABS: BAND NEUTROPHILS 5 %; EOSINOPHILS 2 %; EOSINOPHILS ABSOLUTE (CALC) 0.27 10/3/uL (0.0-0.53); IMMATURE GRANS ABSOLUTE (CALC) 0.14 10/3/uL (0.0-0.11); LYMPHOCYTES 18 %; LYMPHOCYTES ABSOLUTE (CALC) 2.43 10/3/uL (0.67-4.30); METAMYELOCYTES 1 %; MONOCYTES 4 %; MONOCYTES ABSOLUTE (CALC) 0.54 10/3/uL (0.21-1.20); NEUTROPHILS ABSOLUTE (CALC) 10.13 10/3/uL (2.02-8.40); PLATELET ESTIMATE ADQ (ADEQUATE); SEGMENTED NEUTROPHIL (0) 70 %; TOTAL NUCLEATED CELLS 100
[2016-11-05 06:53] LABS: RBC MORPHOLOGY NORM (NORMAL)
[2016-11-06 06:13] LABS: HEMATOCRIT 34.9 % (36.0-48.0); HEMOGLOBIN 11.8 g/dL (12.0-16.0); MEAN CORPUS HGB CONC 33.8 g/dL (32.0-36.0); MEAN CORPUSCULAR VOLUME 82.9 fL (80-100); MEAN PLATELET VOLUME 10.9 fL (9.2-13.0); PLATELET COUNT 290 10/3/uL (150-400); RBC DISTRIBUTION WIDTH 14.8 % (12.0-16.0); RED CELL COUNT 4.21 10/6/uL (4.0-5.6); WHITE BLOOD CELLS 12.1 10/3/uL (4.5-10.5)
[2016-11-06 06:15] LABS: MANUAL DIFF YES %
[2016-11-06 06:25] LABS: A/G RATIO 0.6 (0.7-1.9); ALKALINE PHOSPHATASE 141 U/L (45-117); BUN (BLOOD UREA NITROGEN) 7 MG/DL (6-23); CALCIUM, SERUM 8.4 MG/DL (8.5-10.4); CHLORIDE, SERUM 106 MMOL/L (96-112); CO2 (CARBON DIOXIDE) 24 MMOL/L (24-34); CREATININE 0.63 MG/DL (0.55-1.02); GFR AFRICAN AMERICAN 102 ML/MIN (>=60); GFR NON AFRICAN AMERICAN 88 ML/MIN (>=60); GLOBULIN 3.4 G/DL (2.5-4.1); GLUCOSE, SERUM 88 MG/DL (60-99); SGOT(AST) 18 U/L (5-40); SGPT(ALT) 22 U/L (5-65); SODIUM, SERUM 140 MMOL/L (135-148); TOTAL BILIRUBIN 0.6 MG/DL (0-1.2); TOTAL PROTEIN 5.4 G/DL (6.0-8.5)
[2016-11-06 07:41] LABS: BAND NEUTROPHILS 2 %; EOSINOPHILS 4 %; EOSINOPHILS ABSOLUTE (CALC) 0.48 10/3/uL (0.0-0.53); IMMATURE GRANS ABSOLUTE (CALC) 0.24 10/3/uL (0.0-0.11); LYMPHOCYTES 24 %; METAMYELOCYTES 2 %; MONOCYTES 7 %; MONOCYTES ABSOLUTE (CALC) 0.85 10/3/uL (0.21-1.20); NEUTROPHILS ABSOLUTE (CALC) 7.62 10/3/uL (2.02-8.40); SEGMENTED NEUTROPHIL (0) 61 %; TOTAL NUCLEATED CELLS 100
[2016-11-06 07:42] LABS: PLATELET ESTIMATE ADQ (ADEQUATE); RBC MORPHOLOGY NORM (NORMAL)
[2016-11-06 08:03] LABS: PROCALCITONIN 0.14 ng/mL (<0.5)
[2016-11-07 06:52] LABS: BASOPHILS 0.1 %; BASOPHILS ABSOLUTE 0.01 10/3/uL (0.0-0.16); EOSINOPHILS 0 %; HEMOGLOBIN 12.1 g/dL (12.0-16.0); IMMATURE GRANULOCYTES 2.1 %; IMMATURE GRANULOCYTES ABSOLUTE 0.23 10/3/uL (0.0-0.11); LYMPHOCYTES 8.2 %; LYMPHOCYTES ABSOLUTE 0.91 10/3/uL (0.67-4.30); MANUAL DIFF NO %; MEAN CORPUS HGB CONC 34.6 g/dL (32.0-36.0); MEAN CORPUSCULAR HEMOGLOB 28.6 pg (26.0-34.0); MEAN CORPUSCULAR VOLUME 82.7 fL (80-100); MEAN PLATELET VOLUME 10.3 fL (9.2-13.0); MONOCYTES 1.5 %; MONOCYTES ABSOLUTE 0.17 10/3/uL (0.21-1.20); NEUTROPHILS 88.1 %; NEUTROPHILS ABSOLUTE 9.84 10/3/uL (2.02-8.40); PLATELET COUNT 339 10/3/uL (150-400); RBC DISTRIBUTION WIDTH 14.6 % (12.0-16.0); RED CELL COUNT 4.23 10/6/uL (4.0-5.6); WHITE BLOOD CELLS 11.2 10/3/uL (4.5-10.5)
[2016-11-07 07:05] LABS: CALCIUM, SERUM 8.8 MG/DL (8.5-10.4); CHLORIDE, SERUM 105 MMOL/L (96-112); CO2 (CARBON DIOXIDE) 25 MMOL/L (24-34); CREATININE 0.62 MG/DL (0.55-1.02); GFR AFRICAN AMERICAN 102 ML/MIN (>=60); GFR NON AFRICAN AMERICAN 88 ML/MIN (>=60); POTASSIUM, SERUM 4.5 MMOL/L (3.5-5.3); SODIUM, SERUM 137 MMOL/L (135-148)
[2016-11-07 07:06] LABS: BUN (BLOOD UREA NITROGEN) 11 MG/DL (6-23); GLUCOSE, SERUM 135 MG/DL (60-99)
[2016-11-09 04:58] LABS: BASOPHILS 0.1 %; BASOPHILS ABSOLUTE 0.01 10/3/uL (0.0-0.16); EOSINOPHILS 1.9 %; EOSINOPHILS ABSOLUTE 0.26 10/3/uL (0.0-0.53); HEMATOCRIT 34.1 % (36.0-48.0); HEMOGLOBIN 11.4 g/dL (12.0-16.0); IMMATURE GRANULOCYTES 1.2 %; IMMATURE GRANULOCYTES ABSOLUTE 0.16 10/3/uL (0.0-0.11); LYMPHOCYTES 31.1 %; LYMPHOCYTES ABSOLUTE 4.23 10/3/uL (0.67-4.30); MANUAL DIFF NO %; MEAN CORPUS HGB CONC 33.4 g/dL (32.0-36.0); MEAN CORPUSCULAR HEMOGLOB 28.1 pg (26.0-34.0); MEAN PLATELET VOLUME 10.7 fL (9.2-13.0); MONOCYTES 7.7 %; MONOCYTES ABSOLUTE 1.05 10/3/uL (0.21-1.20); NEUTROPHILS ABSOLUTE 7.87 10/3/uL (2.02-8.40); PLATELET COUNT 321 10/3/uL (150-400); RBC DISTRIBUTION WIDTH 15.3 % (12.0-16.0); RED CELL COUNT 4.06 10/6/uL (4.0-5.6); WHITE BLOOD CELLS 13.6 10/3/uL (4.5-10.5)
[2016-11-09 05:09] LABS: BUN (BLOOD UREA NITROGEN) 12 MG/DL (6-23); CALCIUM, SERUM 8.5 MG/DL (8.5-10.4); CHLORIDE, SERUM 107 MMOL/L (96-112); CO2 (CARBON DIOXIDE) 25 MMOL/L (24-34); CREATININE 0.76 MG/DL (0.55-1.02); GFR AFRICAN AMERICAN 89 ML/MIN (>=60); GFR NON AFRICAN AMERICAN 77 ML/MIN (>=60); GLUCOSE, SERUM 84 MG/DL (60-99); POTASSIUM, SERUM 4.4 MMOL/L (3.5-5.3); SODIUM, SERUM 141 MMOL/L (135-148)
[2016-11-10 03:51] LABS: BASOPHILS 0.1 %; BASOPHILS ABSOLUTE 0.01 10/3/uL (0.0-0.16); EOSINOPHILS 1.8 %; EOSINOPHILS ABSOLUTE 0.25 10/3/uL (0.0-0.53); HEMOGLOBIN 11.4 g/dL (12.0-16.0); IMMATURE GRANULOCYTES 0.8 %; IMMATURE GRANULOCYTES ABSOLUTE 0.11 10/3/uL (0.0-0.11); LYMPHOCYTES 19.9 %; MEAN CORPUS HGB CONC 33.5 g/dL (32.0-36.0); MEAN CORPUSCULAR HEMOGLOB 28.5 pg (26.0-34.0); MEAN PLATELET VOLUME 10.5 fL (9.2-13.0); MONOCYTES 6.8 %; MONOCYTES ABSOLUTE 0.93 10/3/uL (0.21-1.20); NEUTROPHILS 70.6 %; NEUTROPHILS ABSOLUTE 9.58 10/3/uL (2.02-8.40); PLATELET COUNT 290 10/3/uL (150-400); RBC DISTRIBUTION WIDTH 14.7 % (12.0-16.0); WHITE BLOOD CELLS 13.6 10/3/uL (4.5-10.5)
[2016-11-10 03:52] LABS: MANUAL DIFF NO %
[2016-11-10 04:12] LABS: BUN (BLOOD UREA NITROGEN) 9 MG/DL (6-23); CALCIUM, SERUM 8.6 MG/DL (8.5-10.4); CHLORIDE, SERUM 105 MMOL/L (96-112); CO2 (CARBON DIOXIDE) 27 MMOL/L (24-34); CREATININE 0.69 MG/DL (0.55-1.02); GFR AFRICAN AMERICAN 99 ML/MIN (>=60); GFR NON AFRICAN AMERICAN 85 ML/MIN (>=60); GLUCOSE, SERUM 90 MG/DL (60-99); SODIUM, SERUM 140 MMOL/L (135-148)
[2016-11-11 04:29] LABS: BASOPHILS 0.3 %; BASOPHILS ABSOLUTE 0.03 10/3/uL (0.0-0.16); EOSINOPHILS 1.9 %; EOSINOPHILS ABSOLUTE 0.22 10/3/uL (0.0-0.53); HEMATOCRIT 36.8 % (36.0-48.0); IMMATURE GRANULOCYTES ABSOLUTE 0.12 10/3/uL (0.0-0.11); LYMPHOCYTES 25.6 %; MANUAL DIFF NO %; MEAN CORPUS HGB CONC 32.6 g/dL (32.0-36.0); MEAN CORPUSCULAR HEMOGLOB 27.9 pg (26.0-34.0); MEAN CORPUSCULAR VOLUME 85.6 fL (80-100); MEAN PLATELET VOLUME 10.6 fL (9.2-13.0); MONOCYTES 9.2 %; MONOCYTES ABSOLUTE 1.08 10/3/uL (0.21-1.20); NEUTROPHILS ABSOLUTE 7.29 10/3/uL (2.02-8.40); PLATELET COUNT 325 10/3/uL (150-400); RBC DISTRIBUTION WIDTH 14.7 % (12.0-16.0); WHITE BLOOD CELLS 11.7 10/3/uL (4.5-10.5)
[2016-11-11 04:41] LABS: ALBUMIN 2.3 G/DL (3.5-5.0); BUN (BLOOD UREA NITROGEN) 11 MG/DL (6-23); CALCIUM, SERUM 8.5 MG/DL (8.5-10.4); CHLORIDE, SERUM 104 MMOL/L (96-112); CO2 (CARBON DIOXIDE) 30 MMOL/L (24-34); CREATININE 0.67 MG/DL (0.55-1.02); GFR AFRICAN AMERICAN 100 ML/MIN (>=60); GFR NON AFRICAN AMERICAN 86 ML/MIN (>=60); POTASSIUM, SERUM 3.8 MMOL/L (3.5-5.3); SODIUM, SERUM 140 MMOL/L (135-148)
[2016-11-11 04:50] LABS: GLUCOSE, SERUM 111 MG/DL (60-99); PHOSPHORUS, SERUM 3.7 MG/DL (2.5-4.5)
[2016-11-11 06:10] LABS: PROCALCITONIN <0.05 ng/mL (<0.5)
[2016-11-12 05:55] LABS: ALBUMIN 2.2 G/DL (3.5-5.0); BUN (BLOOD UREA NITROGEN) 12 MG/DL (6-23); CALCIUM, SERUM 8.7 MG/DL (8.5-10.4); CHLORIDE, SERUM 105 MMOL/L (96-112); CO2 (CARBON DIOXIDE) 28 MMOL/L (24-34); CREATININE 0.69 MG/DL (0.55-1.02); GFR AFRICAN AMERICAN 99 ML/MIN (>=60); GFR NON AFRICAN AMERICAN 85 ML/MIN (>=60); GLUCOSE, SERUM 102 MG/DL (60-99); SODIUM, SERUM 139 MMOL/L (135-148)
[2016-11-12 05:57] LABS: PHOSPHORUS, SERUM 2.5 MG/DL (2.5-4.5)
[2016-11-12 05:58] LABS: POTASSIUM, SERUM 4.4 MMOL/L (3.5-5.3)
[2016-11-12 06:00] LABS: BASOPHILS 0.2 %; BASOPHILS ABSOLUTE 0.02 10/3/uL (0.0-0.16); EOSINOPHILS 2.1 %; EOSINOPHILS ABSOLUTE 0.24 10/3/uL (0.0-0.53); HEMATOCRIT 33.7 % (36.0-48.0); HEMOGLOBIN 11.3 g/dL (12.0-16.0); IMMATURE GRANULOCYTES 0.8 %; IMMATURE GRANULOCYTES ABSOLUTE 0.09 10/3/uL (0.0-0.11); LYMPHOCYTES 27.9 %; LYMPHOCYTES ABSOLUTE 3.22 10/3/uL (0.67-4.30); MEAN CORPUS HGB CONC 33.5 g/dL (32.0-36.0); MEAN CORPUSCULAR HEMOGLOB 28.3 pg (26.0-34.0); MEAN CORPUSCULAR VOLUME 84.5 fL (80-100); MEAN PLATELET VOLUME 11.2 fL (9.2-13.0); MONOCYTES ABSOLUTE 1.15 10/3/uL (0.21-1.20); NEUTROPHILS ABSOLUTE 6.82 10/3/uL (2.02-8.40); PLATELET COUNT 374 10/3/uL (150-400); RED CELL COUNT 3.99 10/6/uL (4.0-5.6); WHITE BLOOD CELLS 11.5 10/3/uL (4.5-10.5)
[2016-11-12 06:03] LABS: MANUAL DIFF NO %
== END 2016-11-12 17:11 | DRG 471 ==
LOC: SDC 11:48 → MIC 19:59 → 3SO 10-30 18:52 → IMCU 10-31 20:57 → 7NO 11-03 13:19
PROVIDERS: Hospitalist; Internal Medicine Critical Care Medicine; Nurse Practitioner Gerontology; Orthopaedic Surgery
PROC: 4A11X4G Monitoring of Peripheral Nervous Electrical Activity, Intraoperative, External Approach (ICD-10-PCS; 2016-10-29)
PROC: 0RB30ZZ Excision of Cervical Vertebral Disc, Open Approach (ICD-10-PCS; principal; 2016-10-29 14:15)
PROC: 0RG20A0 Fusion of 2 or more Cervical Vertebral Joints with Interbody Fusion Device, Anterior Approach, Anterior Column, Open Approach (ICD-10-PCS; 2016-10-29 14:15)
PROC: 0DH63UZ Insertion of Feeding Device into Stomach, Percutaneous Approach (ICD-10-PCS; 2016-11-09)
DX: M50.323 Other cervical disc degeneration at C6-C7 level (principal); J95.821 Acute postprocedural respiratory failure; R13.10 Dysphagia, unspecified; E83.42 Hypomagnesemia; I47.1 Supraventricular tachycardia; J95.4 Chemical pneumonitis due to anesthesia; I10 Essential (primary) hypertension; K21.9 Gastro-esophageal reflux disease without esophagitis; G47.33 Obstructive sleep apnea (adult) (pediatric); E78.5 Hyperlipidemia, unspecified; Z23 Encounter for immunization; E78.00 Pure hypercholesterolemia, unspecified; M19.90 Unspecified osteoarthritis, unspecified site; M81.0 Age-related osteoporosis without current pathological fracture; E87.6 Hypokalemia; R73.9 Hyperglycemia, unspecified; T38.0X5A Adverse effect of glucocorticoids and synthetic analogues, initial encounter; Y83.8 Other surgical procedures as the cause of abnormal reaction of the patient, or of later complication, without mention of misadventure at the time of the procedure; T41.0X5A Adverse effect of inhaled anesthetics, initial encounter; K59.00 Constipation, unspecified; Z90.710 Acquired absence of both cervix and uterus; Z87.891 Personal history of nicotine dependence; Z87.310 Personal history of (healed) osteoporosis fracture; Z88.0 Allergy status to penicillin; Z79.82 Long term (current) use of aspirin
CPT/HCPCS: 36415; 36600; 71010; 71020; 74000; 74230; 76000; 80048; 80053; 80069; 82330; 82803; 82805; 82947; 82962; 83735; 83880; 84100; 84132; 84145; 84295; 85014; 85018; 85025; 86850; 86900; 86901; 87040; 87641; 88304; 88311; 90670; 92610-GN; 92611-GN; 93005; 94640; 94660; 94667; 94668; 97110-GP; 97116-GP; 97162-GP; 97164-GP; 97530-GP; A9270-GY; C1713; C9113; G0009; G8978-CK-GP; G8978-CL-GP; G8979-CH-GP; G8979-CI-GP; G8996-CK-GN; G8996-CN-GN; G8997-CK-GN; G8997-CN-GN; G8998-CK-GN; G8998-CN-GN; J0690; J1885; J1956; J2250; J2270; J2370; J2405; J2710; J2765; J3010; J3480